=== PATIENT | female | born 1970 | race Caucasian/White ===

== ENCOUNTER 2018-03-19 13:44 | Emergency (ER) | payer OTHER ==
[~2018-03-19] VITALS: Ht 157.5 cm; Wt 101.0 kg
[2018-03-19 14:24] LABS: HEMATOCRIT 38.1 % (36.0-46.0); HEMOGLOBIN 12.7 G/DL (11.9-15.5); MCH 29.4 PG (29.0-34.0); MCHC 33.3 G/DL (30.0-36.0); MCV 88.2 FL (83-99); PLATELET COUNT 206 K/uL (156-360); RBC DIS.WIDTH-SD 52.3 % (39-53); RED BLOOD COUNT 4.32 M/uL (3.80-5.20); WHITE BLOOD COUNT 6.6 K/uL (4.1-10.2)
[2018-03-19 14:36] LABS: CHLORIDE 97 mEq/L (99-109); SODIUM 138 mEq/L (136-147)
[2018-03-19 14:37] LABS: GLUCOSE 110 mg/dL (70-99)
[2018-03-19 14:41] LABS: CREATININE 0.8 mg/dL (0.6-1.3); GFR ESTIMATE (CALCULATED) > 59 mL/min/
[2018-03-19 14:42] LABS: UREA NITROGEN (BUN) 9 mg/dL (9-23)
[2018-03-19 15:23] LABS: CREATINE KINASE 151 IU/L (1-294)
[2018-03-19] MEDS ORDERED: PERCOCET 5/31 TABLET PO (15:46)
[2018-03-19 16:20] VITALS: BP 110/82
== END 2018-03-19 16:21 | disposition home or self-care (01) ==
LOC: EME 13:44
PROVIDERS: Physician Assistant
DX: M54.31 Sciatica, right side (principal); F17.200 Nicotine dependence, unspecified, uncomplicated; Z85.42 Personal history of malignant neoplasm of other parts of uterus
CPT/HCPCS: 80048; 82550; 85027; 99281; 99284; J1885